=== PATIENT | female | born 1965 | race Caucasian/White ===

== ENCOUNTER 2017-04-14 06:40 | Inpatient (IN) | payer BC ==
[~2017-04-14] VITALS: Ht 170.2 cm; Wt 136.4 kg
[2017-04-14] VITALS (10 sets, daily range): BP systolic 108–160; BP diastolic 55–84; Ht 170.2 cm; Wt 136.4 kg
[~2017-04-14 06:40] MED LIST: ACETAMINOPHEN-C1 TAB PO; ESTRACE2 MG PO; GLIPIZIDE10 MG PO; HYZAAR 50-12.51 TAB PO; IBUPROFEN800 MG PO; JARDIANCE25 MG PO; LEXAPRO20 MG PO; METOPROLOL TART50 MG PO; NEURONTIN600 MG PO; PRAVACHOL40 MG PO; ROBAXIN-750750 MG PO; TRESIBA FL100 UNIT/1; VITAMIN D250000 UNIT PO
[2017-04-14 07:44] LABS: HEMATOCRIT 44.4 % (36.0-48.0); HEMOGLOBIN 14.9 g/dL (12-16); MCH 30.3 pg (26.0-34.0); MCHC 33.6 g/dL (31.0-37.0); MCV 90.2 fL (80.0-100.0); RBC 4.92 10x6/uL (4.00-5.40); RDW 13.7 % (11.5-14.5); WBC 7.7 10x3/uL (4.8-10.8)
[2017-04-14 08:02] LABS: ANION GAP 9.8 mmol/L (8-16); CARBON DIOXIDE 29.5 mmol/L (21.0-32.0); CREATININE - SERUM 0.9 mg/dL (0.6-1.3); POTASSIUM - SERUM 4.3 mmol/L (3.5-5.1)
--- NOTE | 2017-04-14 14:16 | NUR ---
NO TRACHAEL DEVIATION NO DIFFICULTY SWALLOWING EQUAL STRENGTHS ALL FOUR EXTREMETIES
--- NOTE | 2017-04-14 16:47 | NUR ---
RECIEVED PT FROM PACU. VOICES NO CO AT TIME. ASSESSMENT PER FLOWSHEET.
--- NOTE | 2017-04-14 19:40 | NUR ---
PATIENT UP TO BSC WITH SOFT COLLAR PLACED ON PT PRIOR TO GETTING UP. PT VOIDED APPROX 300ML OF YELLOW URINE.
--- NOTE | 2017-04-14 23:05 | NUR ---
PATIENT SLEEPING WITH NO DISTRESS NOTED. CALL LIGHT WITHIN REACH, BED IN LOW POSITION.
[2017-04-15] VITALS (12 sets, daily range): BP systolic 100–141; BP diastolic 65–87
--- NOTE | 2017-04-15 03:14 | NUR ---
PT DENIES ANY NEEDS OR PAIN AT THIS TIME. CALL LIGHT WITHIN REACH, BED IN LOW POSITION.
--- NOTE | 2017-04-15 10:30 | NUR ---
PATIENT STOOD AT SIDE OF BED WITHOUT ANY NOTED DIZZYNESS, STATES SHE IS NOT HAVEING ANY PROB. WITH POSITION CHANGE.
--- NOTE | 2017-04-15 11:22 | NUR ---
TO PVT. VEHICLE VIA WC. ASSISTED INTO PVT. VEHICLE WITHOUT INCIDENT.
--- NOTE | 2017-04-19 09:58 | OP ---
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 PROCEDURE: Anterior cervical discectomy and fusion at C5-C6, C6-C7; separate anterior cervical Colonial midline VIP plate; Colonial PEEK interbody cages separately 8 mm at each disc space; removal of osteophytes. SURGEON: Trish Clemens MD DESCRIPTION AND TECHNIQUE: After induction of general endotracheal anesthesia, the patient was positioned supine on the operating table. Neck was prepped and draped in usual sterile fashion. Fluoroscopic x-ray and freer dissector localized the C6 vertebral body. A transverse skin incision was carried out from the midline to the sternocleidomastoid muscle. The platysma was divided with Bovie cautery. Using blunt and sharp dissection with Metzenbaum scissors, I proceeded in an avascular plane medial to the carotid sheath. The longus colli muscles were elevated from the bodies of C5, C6 and C7 and Thatcher pins were placed in the vertebral bodies of C5, C6 and C7. A separate incision was made with 11 blade at each interspace. The disc material was removed with pituitary rongeurs and curettes. Osteophytes were drilled away posteriorly at each level to perform foraminotomies at C5-C6 and C6-C7 bilaterally. The posterior longitudinal ligament was removed at each level with Cloward rongeurs. The dura was decompressing well at each level. A PEEK interbody cage was placed in each separate disc space. Prior to this was filled with Biocell bone stem cells. A separate anterior cervical plate and screws was placed across C5, C6 and C7 vertebral bodies. Self-drilling 60 mm screws were placed into the vertebral bodies of C5, C6 and C7. Locking cams were tightened down over each of the 3 separate screws. Meticulous hemostasis was maintained throughout the wound. The wound was irrigated with copious amounts of Ancef irrigant solution. The platysma and subdermal layer were closed with interrupted 3-0 Vicryl suture. The skin was reapproximated with Steri-Strips and benzoin. A sterile dressing was applied to the wound. The patient was awakened in good condition and taken to recovery. All counts were reported as correct. Estimated blood loss was minimal. TRANSINT:[id number] Voice Confirmation ID: [id number] DOCUMENT ID: [id number] TRISH CLEMENS MD at 0958 CC: [id number] DICTATION DATE: 04/18/172155 SPORTS MEDICINE TRAINER: 04/19/17 0209 DIS IN 04/15/17 [id number] [place] [address]
--- NOTE | 2017-06-09 15:44 | DS ---
PATIENT:PRACHI LLANES :63 MEDICAL RECORD: [id number] DISCHARGE SUMMARY ADMISSION DATE: 04/14/17 DISCHARGE DATE: 04/15/17 ADMISSION DIAGNOSIS: Osteophyte formation at C5-C6 and C6-C7. DISCHARGE DIAGNOSES: Osteophyte formation at C5-C6 and C6-C7. PROCEDURE: Anterior cervical discectomy and fusion at C5-C6 and C6-C7. HOSPITAL COURSE: The patient was admitted as an outpatient, had surgery, tolerated the procedure well, was observed overnight in ICU and then discharged home on the following morning with [place] 10, 1 to 2 every 3 hours p.r.n. pain and tolerating regular diet. She has follow up with Dr. Clemens in 2 weeks with a lateral C-spine x-ray. TRANSINT:[id number] Voice Confirmation ID: [id number] DOCUMENT ID: [id number] TRISH CLEMENS MD at 1544 CC: [id number] DICTATION DATE: 06/07/17 1136 SENIOR CLIENT ADVISOR: 06/07/17 2338 DIS IN 04/15/17 [id number] [place] [address]
== END 2017-04-15 11:23 | disposition home or self-care (01) | DRG 472 ==
LOC: D.SDCHOLD 06:40 → D.ICU 06:40 → D.SDCHOLD 09:00 → D.ICU 16:12
PROVIDERS: Anesthesiology; ADMIT Neurological Surgery
PROC: 0RG20A0 Fusion of 2 or more Cervical Vertebral Joints with Interbody Fusion Device, Anterior Approach, Anterior Column, Open Approach (ICD-10-PCS; principal; 2017-04-14 09:00)
PROC: 0RB30ZZ Excision of Cervical Vertebral Disc, Open Approach (ICD-10-PCS; 2017-04-14 09:00)
DX: M50.122 Cervical disc disorder at C5-C6 level with radiculopathy (principal); Z68.42 Body mass index [BMI] 45.0-49.9, adult; M50.123 Cervical disc disorder at C6-C7 level with radiculopathy; I10 Essential (primary) hypertension; E11.9 Type 2 diabetes mellitus without complications; Z79.4 Long term (current) use of insulin; E66.01 Morbid (severe) obesity due to excess calories; M25.78 Osteophyte, vertebrae